=== PATIENT | female | born 1990 | race Caucasian/White ===

== ENCOUNTER 2017-06-28 18:08 | Emergency (ER) | payer SELFPAY ==
[~2017-06-28] VITALS: Ht 172.7 cm; Wt 71.3 kg
[~2017-06-28 18:08] MED LIST: BCPILLS PO
[2017-06-28 18:18] VITALS: BP 144/82; TEMP 37; Ht 172.7 cm; Wt 71.3 kg
[2017-06-28] MEDS ORDERED: ACETAMINOPHEN 500 MG TAB PO STA (18:37)
[2017-06-28] MEDS ORDERED: LIDOCAINE/EPINEPH/TETRACAINE 1 EA SYR EXT STA (18:37)
[2017-06-28] MEDS ORDERED: LIDOCAINE/EPINEPHRINE 1% 20 ML VIAL INFIL ONE (18:45)
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
--- NOTE | 2017-06-28 19:08 | DIAGNOSTIC IMAGING REPORT ---
HEAD WITHOUT CONTRAST (CT) CT DOSE: 537.48 mGy.cm HISTORY: Trauma. Nausea. head injury, nausea, ?loc TECHNIQUE: Multiaxial CT images of the head were performed without the use of intravenous contrast. A dose lowering technique was utilized adhering to the principles of ALARA. Comparison: None. Findings: The paranasal sinuses and mastoid air cells are clear. The calvarium and skull base are intact. The ventricles and sulci are within normal limits. There is no mass, hematoma, midline shift, or acute infarct. Impression: No acute intracranial abnormality. The above report was generated using voice recognition software. It may contain grammatical, syntax or spelling errors. Electronically signed by: Terry Lemus M.D. 06/28/2017 7:07 PM Dictated Date/Time: 06/28/2017 7:05 PM
[2017-06-28] MEDS ORDERED: DIPHTHERIA/TETANUS/PERTUSSIS 0.5 ML SYR/VIAL IM. ONE (20:00)
[2017-06-28 20:30] VITALS: PULSE 82; O2SAT 99
== END 2017-06-28 20:20 | disposition home or self-care (01) ==
LOC: C.EDB 18:09 → C.EDD 20:20
DX: S01.81XA Laceration without foreign body of other part of head, initial encounter (principal); W22.8XXA Striking against or struck by other objects, initial encounter; Y93.89 Activity, other specified; F17.210 Nicotine dependence, cigarettes, uncomplicated; Z79.3 Long term (current) use of hormonal contraceptives; Z23 Encounter for immunization

== ENCOUNTER 2024-03-19 00:06 | Inpatient (IN) ==
--- OUTSIDE RECORDS SUMMARY | 2024-03-19 00:14 | External Medical Summary | Summary of Care ---
Author Name Unknown Organization [facility] Address [address] [place] [address] Phone [phone] Care Team Providers Care Novelty Twister Operator Name Role Phone Debbie Garibay MD Primary Care Provider Unavailable Reason for Visit * Reason Comments Outpatient Testing Encounter Details Date Type Department Care Team (Late st Contact Info) Description 02/17/2024 7:50 AM EST Laboratory Laboratory, [facility] [address] [place] [id number] [facility] [address] [place] [id number] Encounter for supervision of normal first in third trimester Allergies No known active allergiesdocumented as of this encounter (statuses as of 02/17/2024) Medications Gummies 0.18-25 MG Oral Tablet Chewable Take by mouth. Active documented as of this encounter (statuses as of 02/17/2024) Active Problems Problem Noted Date Diagnosed Date Health counseling 02/17/2024 Assessment & Plan (02/17/2024 9:54 AM EST): Problem Action Taken Date entered Entered by Date resolved First Enrolled at 34 weeks. Unable to use NFP 02/17/2024 Liseth Willingham RN 02/17/2024 Late care Visits discussed 02/17/2024 Liseth Willingham RN 02/17/2024 Smoking/tobacco abuse Smoking Education- down to 3-4 per day. She was unsure how many she was smoking prior to 02/17/2024 Liseth Willingham RN 02/17/2024 Unplanned [facility]st Offer [facility] Unable to do due to 34 week enrollment Liseth Willingham RN 02/17/2024 nutrition Due date letter given for WIC 02/17/2024 Liseth Willingham RN 02/17/2024 Food insecurity 02/07/2024 Overview: Per [facility] Protocol Encounter for supervision of normal first in third trimester 02/03/2024 Late care affecting in third trimester 02/03/2024 Overview (02/03/2024): NOB at 32w5d Anatomy results pending at time of NOB Maternal tobacco use in third trimester 02/03/20 Estimated Date of Delivery Comme nts Yes 03/25/2024 Based on Ultraso und documented as of this encounter (statuses as of 02/17/2024) Resolved Problems Problem Noted Date Diagnosed Date Resolved Date AMA (advanced maternal age) multigravida 35+ 4 02/17/2024 documented as of this encounter (statuses as of 02/17/2024) Social History Tobacco Use Types Packs/Day Years Used Date Smoking Tobacco: Every Day Cigarettes Smokeless Tobacco: Never Alcohol Use Standard Drinks/Week Comments Not Currently 0 (1 standard drink = 0.6 oz pur e alcohol) Hunger Vital Sign Answer Date Recorded Within the past 12 months, y ou worried that your food would run out before you got the money to buy more. Sometimes true Within the past 12 months, t he food you bought just didn't last and you didn't have money to get more. Never true [place] Depression Scale Answer Date Recorded [place] Depression Scale Total 3 02/03/2024 The thought of harming myself has occurred to me . Never 02/03/2024 Childcare Answer Date Recorded Do you feel overwhelmed with taking care of a child, family member or friend? No 01/23/2024 Does your family need help f inding childcare? (Household - for ages 0-17 years) Not on file 01/23/2024 Clothing Answer Date Recorded Have you been unable to get clothing when it was really needed? No 01/23/2024 Is your family able to get c lothes or diapers when needed? (Household - for ages 0-17 years) Not on file 01/23/2024 Personal Safety Answer Date Recorded Do you feel unsafe or have concerns for your saf ety? No 01/23/2024 Do you have concerns for you r family's safety? (Household - for ages 0-17 years) Not on file 01/23/2024 Utilities Answer Date Recorded Do you have trouble paying y our heating, water, or electric bill? No 01/23/2024 Is your family able to pay t he heat, water, or electric bill? (Household - for ages 0-17 years) Not on file 01/23/2024 Does your family have access to good internet? (Household - for ages 0-17 years) Not on file 01/23/2024 Employment Status Answer Date Recorded Are you unemployed or without regular income? No 01/23/2024 Does the household have a [facility] source of income? (Household - for ages 0-17 years) Not on file 01/23/2024 Social Connections Answer Date Recorded How often do you feel lonely or isolated from th ose around you? Rarely 01/23/2024 Financial Resource Strain Answer Date R ecorded Do you have any trouble payi ng for your medications, or do you think you might in the future? Yes 01/23/2024 Does your family have troubl e paying for medicine? (Household - for ages 0-17 years) Not on file 01/23/2024 Transportation Needs Answer Date Record ed Do you have trouble getting a ride to medical visits or work? (Adult - for ages 18 years and over) Not on file 01/23/2024 Does your family have a hard time getting a ride to doctors visits? (Household - for ages 0-17 years) Not on file 01/23/2024 Has lack of transportation k ept you from medical appointments, meetings, work, or from getting things needed for daily living? Check all that apply. No 01/23/2024 Do you (or your family) have trouble finding or paying for a ride (transportation)? (Household - for ages 0-17 years) Not on file 01/23/2024 Housing Stability Answer Date Recorded Do you currently live in a s helter or have no steady place to sleep at night? No 01/23/2024 Do you think you are at risk of becoming homeless? (Adult - for ages 18 years and over) Not on file 01/23/2024 Does your family worry about paying for your home or becoming homeless? (Household - for ages 0-17 years) Not on file 1 03/24/2023 Are you homeless or worried that you might be in the future? No 01/23/2024 Are you (or your family) karthik eless or worried that you might be in the future? (Household - for ages 0-17 years) Not on file Food Insecurity Answer Date Recorded Do you need food for this week? No 01/23/2024 Are you able to get enough f ood for your family? (Household - for ages 0-17 years) Not on file 01/23/2024 Does your family need food t his week? (Household - for ages 0-17 years) Not on file 01/23/2024 Do you always have enough fo od for your family? (Household - for ages 0-17 years) Not on file 01/23/2024 Estimated Date of Delivery Comme nts Yes 03/25/2024 Based on Ultraso und Sex and Gender Information Value Date Recorded Sex Assigned at Female 01/23/2024 9:47 AM EST Legal Sex Female 7:20 AM EST Gender Identity Female 01/23/2024 9:47 AM EST Sexual Orientation Straight 01/23/2024 9: 47 AM EST documented as of this encounter Plan of Treatment Upcoming Encounters Date Type Department Care Team (Late st Contact Info) Description 03/08/2024 11:15 AM EST Office Visit Gynecology/Obstetrics Beatriz Jesus [address] [place] [id number] Juliane Varela CRNP [address] [place] [address] [facility] [address] [place] [phone] Pending Results Name Type Priority Associated Diagnoses Date /Time 50-G GESTATIONAL GLUCOSE, 1 HOUR Lab Routine Encounter for supervision of normal first in third trimester 02/17/2024 9:00 AM EST Health Maintenance Due Date Last Done Comments Pneumococcal Vaccine: Pediat rics (0 to 5 Years) and At-Risk Patients (6 to 64 Years) (1 of 2 - PCV) 1995 Depression Screening 2001 Hepatitis B Vaccine (1 of 3 - 19+ 3-dose series) 2008 COVID-19 Vaccine ( - 2023-2 5 season) 2023 Influenza Vaccine (FLU shot) (#1) 2023 Pap Smear 02/02/2027 02/03/2024 DTap/Tdap Vaccines (2 - Td o r Tdap) 06/29/2027 06/28/2017 Cervical Cancer Screening 02/02/2029 HPV/Co-Test 02/02/2029 02/03/2024 HPV (Gardasil) Vaccine Aged Out No lo nger eligible based on patient's age to complete this topic MENINGOCOCCAL (MENACTRA/MENVEO) Aged Out No longer eligible based on patient's age to complete this topic documented as of this encounter Goals Goal Patient Goal Type Associated Problems Recent Progress Patient-Stated? Author Reminders Care Plan OB Reminders No Aimee, Provider documented as of this encounter Medical Devices Not on filedocumented as of this encounter Visit Diagnoses Diagnosis Encounter for supervision of normal first in third trimester- Primary Supervision of normal first Late care affecting in third trimester Maternal tobacco use in third trimester Encounter for supervision of normal first in third trimester Supervision of normal first documented in this encounter Additional Health Concerns Active Problems Noted Date Diagnosed Date OB Reminders 02/17/2024 documented as of this encounter Care Teams Novelty Twister Operator Relationship Specialty Start Date End Date Debbie Garibay MD PCP - General 01/21/1998 documented as of this encounter
--- OUTSIDE RECORDS SUMMARY | 2024-03-19 00:14 | External Medical Summary ---
Author Name Unknown Address Unknown Organization [facility] [address] [place] [address] Laboratory Report Ordering Provider Test Date Status EDDA FABIAN 02/11/2024 10:38:18 Final Observation Date Value Abnormality Reference (Units ) Status Hep C Ab 02/11/2024 10:38:18 Negative Negative Final Further HCV quantitative oxana ting not performed per protocol. Performing Location [facility] [address] [place] [address]
--- OUTSIDE RECORDS SUMMARY | 2024-03-19 00:14 | External Medical Summary | Summary of Care ---
Author Name Unknown Organization [facility] Address [address] [place] [facility] [place] [address] Phone [phone] Care Team Providers Care Solutions Executive Security Name Role Phone Debbie Garibay MD Primary Care Provider Unavailable Reason for Visit * Reason Comments Return Visit Encounter Details Date Type Department Care Team (Late st Contact Info) Description 03/08/2024 11:15 AM EST Office Visit Gynecology/Obstetri kena Jesus [address] [facility] [place] [address] Juliane Varela CRNP [address] [place] [address] Nurse [facility] [address] [place] [address] Normal in third trimester*; Late care affecting in third trimester; Maternal tobacco use in third trimester; Health counseling Allergies No known active allergiesdocumented as of this encounter (statuses as of 03/08/2024) Medications Gummies 0.18-25 MG Oral Tablet Chewable Take by mouth. Active documented as of this encounter (statuses as of 03/08/2024) Active Problems Problem Noted Date Diagnosed Date [...] 02/07/2024 Overview: Per [facility] Protocol Normal 02/03/2024 Late care affecting in third trimester 02/03/2024 Overview (02/03/2024): NOB at 32w5d Anatomy results pending at time of NOB Maternal tobacco use in third trimester 02/03/20 Estimated Date of Delivery Comme nts Yes 03/25/2024 Based on Ultraso und documented as of this encounter (statuses as of 03/08/2024) Resolved Problems Problem Noted Date Diagnosed Date Resolved Date AMA (advanced maternal age) multigravida 35+ 4 02/17/2024 documented as of this encounter (statuses as of 03/08/2024) Social History Tobacco Use Types Packs/Day Years [...] have money to get more. Never true [place] Depression Scale Answer Date Recorded [place] Depression Scale Total 3 02/03/2024 The thought [...] No 01/23/2024 Does the household have a [facility] source [facility] income? (Household - for ages [...] AM EST documented as of this encounter Last Filed Vital Signs Vital Sign Reading Time Taken Comments Blood Pressure 124/80 03/08/2024 11:27 AM EST Pulse - - Temperature - - Respiratory Rate - - Oxygen Saturation - - Inhaled Oxygen Concentration - - Weight 70.3 kg (155 lb) 03/08/2024 11:27 AM EST Height 172.7 cm (5' 8") 03/08/2024 11:27 AM EST Body Mass Index 23.57 03/08/2024 11:27 AM EST documented in this encounter Progress Notes * Corinna Thomas LPN - 03/08/2024 11:28 AM EST 37w4d Denies vaginal bleeding/rom + movement No new concerns * Juliane Varela CRNP - 03/08/2024 11:24 AM EST 37w4d Baby is active. No leaking, bleeding, ctx. GBS collected today. Reviewed [facility] and labor signs. Return in 1 week. Air Value Tester Documentation Provider requested major assembler. Name of major assembler: HILARIO Varghese documented in this encounter Plan of Treatment Upcoming Encounters Date Type Department Care Team (Late st Contact Info) Description 03/21/2024 8:45 AM EST Office Visit Gynecology/Obstetrics [facility] [address] [place] [id number] Juliane Varela CRNP [address] [place] [address] Pending Results Name Type Priority Associated Diagnoses Date /Time GROUP B STREP CULTURE/PCR Lab Routine Normal in third trimester 03/08/2024 11:39 AM EST Health Maintenance Due Date Last Done Comments Depression Screening 2001 Hepatitis B Vaccine (1 of 3 - 19+ 3-dose series) 2008 Pneumococcal Vaccine: Pediat rics (0 to 5 Years) and At-Risk Patients (6 to 18 Years and 19+ Years) (1 of 2 - PCV) 2008 COVID-19 Vaccine ( - 2023-2 5 [...] Author Reminders Care Plan OB Reminders No Aimee Provider documented as of this encounter Medical Devices Not on filedocumented as of this encounter Visit Diagnoses Diagnosis Encounter for supervision of normal first in third trimester- Primary Supervision of normal first Late care affecting in third trimester Maternal tobacco use in third trimester Normal in third trimester- Primary Late care affecting in third trimester Maternal tobacco use in third trimester Health counseling Other specified counseling documented in this encounter Additional Health Concerns Active Problems Noted Date Diagnosed Date OB Reminders 02/17/2024 documented as of this encounter Care Teams Solutions Executive Security Relationship Specialty Start Date End Date Debbie Garibay MD PCP - General 01/21/1998 documented as of this encounter
--- OUTSIDE RECORDS SUMMARY | 2024-03-19 00:14 | External Medical Summary | Summary of Care ---
Author Name Unknown Organization [facility] Address [address] [place] [address] Phone [phone] Care Team Providers Care Insulating Machine Operator Name Role Phone Debbie Garibay MD Primary Care Provider Unavailable Reason for Visit * Reason Comments Outpatient Testing Encounter Details Date Type Department Care Team (Late st Contact Info) Description 02/17/2024 8:00 AM EST Laboratory Laboratory, [facility] [address] [place] [id number] [facility] [address] [place] [address] Arrived Allergies No known active allergiesdocumented as of this encounter (statuses as of 02/17/2024) Medications Gummies 0.18-25 MG Oral Tablet Chewable Take by mouth. Active documented as of this encounter (statuses as of 02/17/2024) Active Problems Problem Noted Date Diagnosed Date Food insecurity 02/07/2024 Overview: Per [facility] Protocol Encounter for supervision of normal first in third trimester 02/03/2024 Late care affecting in third trimester 02/03/2024 Overview (02/03/2024): NOB at 32w5d Anatomy results pending at time of NOB Maternal tobacco use in third trimester 02/03/20 24 Estimated Date of Delivery Comme nts Yes [...] have money to get more. Never true [place] Depression Scale Answer Date Recorded [place] Depression Scale Total 3 02/03/2024 The thought [...] No 01/23/2024 Does the household have a re gular source of income? (Household - for ages [...] as of this encounter Plan of Treatment Health Maintenance Due Date Last Done Comments Pneumococcal Vaccine: Pediat rics (0 to 5 Years) and At-Risk Patients (6 to 64 Years) (1 of 2 - PCV) 1995 Depression Screening 2001 Hepatitis B Vaccine (1 of 3 - 19+ 3-dose series) 2008 COVID-19 Vaccine (2023-2 5 season) 2023 Influenza Vaccine (FLU shot) [...] Author Reminders Care Plan OB Reminders No Mychart, Provider documented as of this encounter Medical Devices Not on filedocumented as of this encounter Additional Health Concerns Active Problems Noted Date Diagnosed Date OB Reminders 02/17/2024 documented as of this encounter Care Teams Insulating Machine Operator Relationship Specialty Start Date End Date Debbie Garibay MD PCP - General 01/21/1998 documented as of this encounter
--- OUTSIDE RECORDS SUMMARY | 2024-03-19 00:14 | External Medical Summary ---
Author Name Unknown Address Unknown Organization [id number]:LABORATORY [facility] [place] - [facility] [address] [place] [address] Laboratory Report Ordering Provider Test Date Status PRECIOUS THOMPSON 03/08/2024 11:39:12 Final Observation Date Value Abnormality Reference (Units ) Status Streptococcus agalactiae DNA [Presence] in Specimen by JESSENIA with probe detection 03/08/2024 11:39:12 Negative Negative Final No Group B Streptococcus det ected by culture-enhanced PCR (amplified probe). GBS GBSCT - [facility] 03/08/2024 11:39:12 0.0 Final GBS SPCCT - [facility] 03/08/2024 11:39:12 32.0 Final Performing Location LAB[facility]ORY [facility] [place] - [address] [place] [address]
--- OUTSIDE RECORDS SUMMARY | 2024-03-19 00:14 | External Medical Summary | Summary of Care ---
Author Name Unknown Organization [facility] Address [address] [place] [place] [address] Phone [phone] Care Team Providers Care Hospitality Host Name Role Phone Debbie Garibay MD Primary Care Provider Unavailable Reason for Visit * Reason Comments Outpatient Testing Encounter Details Date Type Department Care Team (Late st Contact Info) Description 02/11/2024 10:30 AM EST Laboratory Laboratory [address] [place] [id number] [place] [address] Encounter for supervision of normal first in third trimester Allergies No known active allergiesdocumented as of this encounter (statuses as of 02/11/2024) Medications Gummies 0.18-25 MG Oral Tablet Chewable Take by mouth. Active Cephalexin 500 MG Oral Capsule (Keflex) Take 1 Capsule by mouth in the morning and 1 Capsule before bedtime. Do all this for 7 days. Until gone.. 14 Capsule 02/07/2024 4 Active documented as of this encounter (statuses as of 02/11/2024) Active Problems Problem Noted Date Diagnosed Date Encounter for supervision of normal first in third trimester 02/03/2024 Late care affecting in third trimester 02/03/2024 Overview (02/03/2024): NOB at 32w5d Anatomy results pending at time of NOB Maternal tobacco use in third trimester 02/03/20 Estimated Date of Delivery Comme nts Yes 03/25/2024 Based on Ultraso und documented as of this encounter (statuses as of 02/11/2024) Social History Tobacco Use Types Packs/Day Years [...] have money to get more. Never true [place] Depression Scale Answer Date Recorded [place] Depression Scale Total 3 02/03/2024 The thought [...] Team (Late st Contact Info) Description 02/17/2024 7:30 AM EST Office Visit Gynecology/Obstetrics [facility] [address] [place] [address] Juliane Varela CRNP [address] [place] [address] Pending Results Name Type Priority Associated Diagnoses Date /Time TYPE AND SCREEN Lab Routine Encounter for supervision of normal first in third trimester 02/11/2024 10:38 AM EST RUBELLA IGG ANTIBODY Lab Routine Encounter for supervision of normal first in third trimester 02/11/2024 10:38 AM EST HEPATITIS B SURFACE ANTIGEN Lab Routine Encounter for supervision of normal first in third trimester 02/11/2024 10:38 AM EST HIV ANTIGEN & ANTIBODY SCREEN W/ CONFIRMATION Lab Routine Encounter for supervision of normal first in third trimester 02/11/2024 10:38 AM EST CBC WITH WBC DIFFERENTIAL AND ANEMIA REFLEX WORKUP Lab Routine Encounter for supervision of normal first in third trimester 02/11/2024 10:38 AM EST HEPATITIS C ANTIBODY SCREEN WITH PROGRESSION TO HEPATITIS C RNA QUANTITATIVE Lab Routine Encounter for supervision of normal first in third trimester 02/11/2024 10:38 AM EST SYPHILIS ANTIBODY SCREEN WITH REFLEX TO RPR Lab Routine Encounter for supervision of normal first in third trimester 02/11/2024 10:38 AM EST ANEMIA CBC Lab Routine Encounter for supervision of normal first in third trimester 02/11/2024 10:38 AM EST DIFFERENTIAL, AUTOMATED Lab Routine Encounter for supervision of normal first in third trimester 02/11/2024 10:38 AM EST ANEMIA REFLEX CHEMISTRY HOLD Lab Routine Encounter for supervision of normal first in third trimester 02/11/2024 10:38 AM EST HEPATITIS C ANTIBODY Lab Routine Encounter for supervision of normal first in third trimester 02/11/2024 10:38 AM EST HEPATITIS C RNA ADD ON Lab Routine Encounter for supervision of normal first in third trimester 02/11/2024 10:38 AM EST SYPHILIS ANTIBODY SCREEN Lab Routine Encounter for supervision of normal first in third trimester 02/11/2024 10:38 AM EST ABO/RH Lab Routine Encounter for supervision of normal first in third trimester 02/11/2024 10:47 AM EST Health Maintenance Due Date Last Done Comments Pneumococcal Vaccine: Pediat rics (0 to 5 Years) and At-Risk Patients (6 to 64 Years) (1 of 2 - PCV) 1995 Depression Screening 2001 HIV Screening 2004 Hepatitis C Screening 2007 Hepatitis B Vaccine (1 of 3 - [...] this topic documented as of this encounter Medical Devices Not on filedocumented as of this encounter Visit Diagnoses Diagnosis Encounter for supervision of normal first in third trimester Supervision of normal first documented in this encounter Care Teams Hospitality Host Relationship Specialty Start Date End Date Debbie Garibay MD PCP - General 01/21/1998 documented as of this encounter
--- OUTSIDE RECORDS SUMMARY | 2024-03-19 00:14 | External Medical Summary ---
Author Name Unknown Address Unknown Organization [id number]:LABORATORY [facility] [place] [address] [place] [address] Laboratory Report Ordering Provider Test Date Status EDDA FABIAN 02/17/2024 09:00:26 Final Observation Date Value Abnormality Reference (Units ) Status Glucose [Moles/volume] in Serum or Plasma --1 hour post 50 g glucose PO 02/17/2024 09:00:26 76 70-129 (mg/dL) Final Performing Location LABORATORY [facility] [place] [facility] - [address] [place] [address]
--- OUTSIDE RECORDS SUMMARY | 2024-03-19 00:14 | External Medical Summary | Summary of Care ---
Author Name Unknown Organization [facility] Address [address] [place] [facility] [place] [address] Phone [phone] Care Team Providers Care Brilliandeer Looper Name Role Phone Debbie Garibay MD Primary Care Provider Unavailable Reason for Visit * Reason Comments Return Visit Encounter Details Date Type Department Care Team (Late st Contact Info) Description 02/17/2024 7:30 AM EST Office Visit Gynecology/Obstetric s [facility] [address] [place] [address] Juliane Varela CRNP [address] [place] [address] Encounter for supervision of normal first in third trimester*; Late care affecting in third trimester; Maternal tobacco use in third trimester Allergies No known active allergiesdocumented as of this encounter (statuses as of 02/17/2024) Medications Gummies 0.18-25 MG Oral Tablet Chewable Take by mouth. Active Cephalexin 500 MG Oral Capsule (Keflex) Take 1 Capsule by mouth in the morning and 1 Capsule before bedtime. Do all this for 7 days. Until gone.. 14 Capsule 02/17/20 24 Discontinu ed(Medicat ion List Clean Up) documented as of this encounter (statuses as [...] have money to get more. Never true [place] Depression Scale Answer Date Recorded [place] Depression Scale Total 3 02/03/2024 The [...] Sign Reading Time Taken Comments Blood Pressure 128/82 02/17/2024 7:22 AM EST Pulse - - Temperature - - Respiratory Rate - - Oxygen Saturation - - Inhaled Oxygen Concentration - - Weight 71.2 kg (157 lb) 02/17/2024 7:22 AM EST Height - - Body Mass Index 23.87 02/03/2024 12:41 PM EST documented in this encounter Progress Notes * Juliane Varela CRNP - 02/17/2024 7:39 AM EST 34w5d Baby moving well. No ctx, leaking, bleeding. Has not completed glucose testing - discussed concerns with unknown blood sugars if GDM. She is agreeable to completing this today. Advised to look into pediatricians. Discussed GBS testing at next visit. Wants a tubal, consent signed today. 2 week return HILARIO Monae documented in this encounter Nursing Notes * Liseth Willingham RN - 02/17/2024 10:05 AM EST have you cut down with your smoking yes have you quit no have you seen a bundle collector no have you seen a adoption social worker no are you receiving counseling no have you received dental care during your no are you enrolled in [facility] yes do you receive food stamps or grimes assistance yes are you having problems with depression, receiving counseling or taking prescribed medications denies have you had little interest in doing things, or have you been bothered by feeling down, depressed,or hopeless denies 47. Client's Concerns About Delivery or The Process: denies 48. Problems Feeding Previous Babies: N/A 49. Concerns About Feeding This Baby: plans to bottle feed 50. Plans For Baby's Space: has crib. Getting car seat 51. Client's Plans After : Will Stay at Home to Care for Baby Comments (Including Typewriter Operator Automatic Plans If Returning to Work/School): SUMMARY/INFORMATION 52. Need For Additional Information / Help: documented in this encounter Miscellaneous Notes * Assessment & Plan Note - Liseth Willingham RN - 02/17/2024 9:54 AM EST Associated Problem(s): Health counseling Problem Action Taken Date entered Entered by [...] for WIC 02/17/2024 Liseth Willingham RN 02/17/2024 documented in this encounter Plan of Treatment Upcoming Encounters Date Type Department Care Team (Late st Contact Info) Description 03/08/2024 11:15 AM EST Office Visit Gynecology/Obstetrics [facility] [address] [place] [address] Juliane Varela CRNP [address] [place] [address] Nurse [facility] [address] [place] [address] Health Maintenance Due Date Last Done Comments [...] trimester Maternal tobacco use in third trimester documented in this encounter Additional Health Concerns Active Problems Noted Date Diagnosed Date OB Reminders 02/17/2024 documented as of this encounter Care Teams Brilliandeer Looper Relationship Specialty Start Date End Date Debbie Garibay MD PCP - General 01/21/1998 documented as of this encounter
--- OUTSIDE RECORDS SUMMARY | 2024-03-19 00:15 | External Medical Summary ---
Author Name Unknown Address Unknown Organization [id number]:[place] [facility] [place] [facility] [place] [address] [facility] [address] Laboratory Report Ordering Provider Test Date Status EDDA FABIAN 02/11/2024 10:38:18 Final Observation Date Value Abnormality Reference (Units ) Status HIV 1+2 Ab+HIV1 p24 Ag [Presence] in Serum or Plasma by Immunoassay 02/11/2024 10:38:18 Negative Negative Final Negative HIV-1/2 antigen and antibody screening tset results usually indicate the absence of HIV-1 and HIV-2 infection. However, such negative results do not rule-out acute HIV infection. If acute HIV-1 infection is highly suspected, it is recommended that a specimen be submitted for detection of HIV-1 RNA. Performing Location [facility] [facility] [place] [address] [place] [address]
--- OUTSIDE RECORDS SUMMARY | 2024-03-19 00:15 | External Medical Summary | Summary of Care ---
Author Name Unknown Organization [facility] Address [address] [facility] [address] Phone [phone] Care Team Providers Care Speech Teacher Name Role Phone Debbie Garibay MD Primary Care Provider Unavailable Reason for Visit * Reason Onset Date Comments Appointment 02/03/2024 Encounter Details Date Type Department Care Team (Late st Contact Info) Description 02/03/2024 Telephone Gynecology/Obstetrics [facility] [address] [place] [address] Samantha Richards PA-C [address] [place] [address] Appointment Social History Tobacco Use Types Packs/Day Years Used Date Smoking Tobacco: Never Assessed Hunger Vital Sign Answer Date Recorded Within the past 12 months, y ou worried that your food would run out before you got the money to buy more. Sometimes true Within the past 12 months, t he food you bought just didn't last and you didn't have money to get more. Never true Childcare Answer Date Recorded Do you feel [...] No 01/23/2024 Does the household have a [facility] source [facility] income? (Household - for [...] ages 0-17 years) Not on file 01/23/2024 Comments Unknown Sex and Gender Information Value Date Recorded Sex Assigned at Female 01/23/2024 9:47 AM EST Legal Sex Female 7:20 AM EST Gender Identity Female 01/23/2024 9:47 AM EST Sexual Orientation Straight 01/23/2024 9: 47 AM EST documented as of this encounter Miscellaneous Notes * Telephone Encounter - Cathryn Ruiz LPN - 02/03/2024 9:07 AM EST TC to patient regarding todays appt. Previously unable to reach patient to complete intake or to schedule for anatomy US. Patient was planning on coming for todays appt with Samantha Richards. She is agreeable to coming at 11am for ultrasound, intake at noon, and then appt with Samantha at 130pm. documented in this encounter Plan of Treatment Upcoming Encounters Date Type Department Care Team (Late st Contact Info) Description 02/03/2024 11:15 AM EST Imaging Radiology [facility] [address] [place] [address] 02/03/2024 12:45 PM EST Nurse Only Gynecology/Obstetrics [facility] [address] [facility] [place] [address] Gw, Nurse Supervisor [employer] [facility] [address] [place] [address] 02/03/2024 1:30 PM EST Office Visit Gynecology/Obstetrics [facility] [address] [place] [address] Samantha Richards PA-C [address] [place] [address] Health Maintenance Due Date Last Done Comments Depression Screening 2001 HIV Screening 2004 Hepatitis C Screening 2007 DTap/Tdap Vaccines (1 - Tdap) 2008 Hepatitis B Vaccine (1 of 3 - 19+ 3-dose series) 2008 Pap Smear 2010 Cervical Cancer Screening 2019 HPV/Co-Test 2019 COVID-19 Vaccine ( - 2023-2 5 season) 2023 Influenza Vaccine (FLU shot) (#1) 2023 HPV (Gardasil) Vaccine Aged Out No lo nger eligible based on patient's age to complete this topic MENINGOCOCCAL (MENACTRA/MENVEO) Aged Out No longer eligible based on patient's age to complete this topic Pneumococcal Vaccine: Pediat rics (0 to 5 Years) and At-Risk Patients (6 to 64 Years) Aged Out No longer eligible b ased on patient's age to complete this topic documented as of this encounter Medical Devices Not on filedocumented as of this encounter Care Teams Speech Teacher Relationship Specialty Start Date End Date Debbie Garibay MD PCP - General 01/21/1998 documented as of this encounter
--- OUTSIDE RECORDS SUMMARY | 2024-03-19 00:15 | External Medical Summary | Summary of Care ---
Author Name Unknown Organization [facility] Address [address] [facility] [place] [address] Phone [phone] Care Team Providers Care Inspector Crystal Name Role Phone Debbie Garibay MD Primary Care Provider Unavailable Reason for Visit * Reason Comments Initial Visit Encounter Details Date Type Department Care Team (Late st Contact Info) Description 02/03/2024 1:30 PM EST Office Visit Gynecology/Obstetric s [facility] Jesus [address] [place] [address] Samantha Richards PA-C [address] [place] [address] Encounter for supervision of normal first in third trimester*; Pap smear for cervical cancer screening; Late care affecting in third trimester; Maternal tobacco use in third trimester Allergies No known active allergiesdocumented as of this encounter (statuses as of 02/03/2024) Medications No known medicationsdocumented as of this encounter (statuses as of 02/03/2024) Active Problems Problem Noted Date Diagnosed Date [...] as of this encounter (statuses as of 02/03/2024) Social History Tobacco Use Types Packs/Day Years [...] have money to get more. Never true [place] Depression Scale Answer Date Recorded [place] Depression Scale Total 3 02/03/2024 The thought [...] Reading Time Taken Comments Blood Pressure 128/82 02/03/2024 12:41 PM EST Pulse - - Temperature - - Respiratory Rate - - Oxygen Saturation - - Inhaled Oxygen Concentration - - Weight 68.9 kg (152 lb) 02/03/2024 12:41 PM EST Height 172.7 cm (5' 8") 02/03/2024 12:41 PM EST Body Mass Index 23.11 02/03/2024 12:41 PM EST documented in this encounter Progress Notes * Samantha Richards PA-C - 02/03/2024 12:52 PM EST CC: NOB HPI: Amairani Sanchez is a 33 year old female here for initial OB exam. CRISTINO 03/25/2024 by third trimester ultrasound completed today.. LMP: unknown. On contraceptive pills. Did not get period. Only found out she was end of November as she was gaining weight and didn't know why. Late care patient states due in part to no insurance and only finding out about amonth ago. She is taking vitamins. She does NOT plan to breastfeed . Reviewed PMH, social hx, family hx, surgical hx, ob hx with patient. Pertinent positives: - She is smoker. Current symptoms: none Discussed Qnatal and Quad screen. Reviewed current medications with patient. Last pap smear unsure. Within last 5 years. All normals in past. Pt states unsure paternity. Had 2 partners at time conception likely took place. [place] Depression Scale: [place] Depression Scale Total: (Patient-Rptd) 3 [place] suicide question and score: Score of 3 = Yes, quite often. Score of 2 = Sometimes. Score of 1 = Hardly ever The thought of harming myself has occurred to me.: (Patient-Rptd) 0 OB History Para Term AB Living 2 1 SAB IAB Ectopic Multiple Live Births 1 # Outcome Date GA Lbr Tien/2nd Weight Sex Type Anes PTL Lv 2 Current 1 SAB 8w0d No past medical history on file. Social History Socioeconomic History Marital status: Single Tobacco Use Smoking status: Every Day Current packs/day: 0.50 Types: Cigarettes Smokeless tobacco: Never Substance and Sexual Activity Alcohol use: Not Currently Drug use: Never Sexual activity: Not Currently Social Needs Financial Resource Strain: High Risk (01/23/2024) Financial Resource Strain Do you have any trouble paying for your medications, or do you think you might in the future? (Adult - for ages 18 years and over): Yes Food Insecurity: No Food Insecurity (01/23/2024) Food Insecurity Do you need food for this week? (Adult - for ages 18 years and over): No Recent Concern: Food Insecurity - Food Insecurity Present (01/23/2024) Hunger Vital Sign Worried About Running Out of Food in the Last Year: Sometimes true Ran Out of Food in the Last Year: Never true Transportation Needs: No Transportation Needs (01/23/2024) Transportation Needs Has lack of transportation kept you from medical appointments, meetings, work, or from getting things needed for daily living? Check all that apply. (Adult - for ages 18 years and over): No Social Connections: Socially Integrated (01/23/2024) Social Connections How often do you feel lonely or isolated from those around you? (Adult - for ages 18 years and over): Rarely Housing Stability: Low Risk (01/23/2024) Housing Stability Do you currently live in a penitentiary or have no steady place to sleep at night? (Adult - for ages 18 years and over): No Are you homeless or worried that you might be in the future? (Adult - for ages 18 years and over): No No past surgical history on file. Current Outpatient Medications Medication Sig Dispense Refill Gummies 0.18-25 MG Oral Tablet Chewable Take by mouth. No current facility-administered medications for this visit. Review of patient's allergies indicates: No Known Allergies No family history on file. Denies family history of genetic conditions in patient's families. ROS: General: no fevers, chills CV: no chest pain, SOB GI: no constipation, diarrhea, nausea Breast: no masses, nipple discharge, tenderness : no vaginal bleeding, unusual vaginal discharge, dysuria Psychological: no anxiety, depression, SI/HI PHYSICAL EXAM: please see physical [employer] Documentation Provider requested emblem cutter. Name of emblem cutter: Cathryn Woodson LPN ASSESSMENT/PLAN: Encounter for supervision of normal first in third trimester (Primary) Anatomy complete today -- results still in process. Discussed may need follow up anatomy; however, may be limited study due to late GA. Declines Tdap and Flu vaccine upon counseling. Discussed need and importance of blood work. Recommend she complete today. Pt states will need to return for glucola at later date. Discussed returning prior to next visit as need to screen for GDM. - CULTURE, URINE, QUANTITATIVE - TYPE AND SCREEN; Future; Expected date: 02/03/2024 - RUBELLA IGG ANTIBODY; Future; Expected date: 02/03/2024 - HEPATITIS B SURFACE ANTIGEN; Future; Expected date: 02/03/2024 - HIV ANTIGEN & ANTIBODY SCREEN W/ CONFIRMATION; Future; Expected date: 02/03/2024 - CHLAMYDIA TRACHOMATIS AND NEISSERIA GONORRHOEAE, AMPLIFIED PROBE - ABO/RH; Future; Expected date: 02/03/2024 - CBC WITH WBC DIFFERENTIAL AND ANEMIA REFLEX WORKUP; Future; Expected date: 02/03/2024 - HEPATITIS C ANTIBODY SCREEN WITH PROGRESSION TO HEPATITIS C RNA QUANTITATIVE; Future; Expected date: 02/03/2024 - SYPHILIS ANTIBODY SCREEN WITH REFLEX TO RPR; Future; Expected date: 02/03/2024 - 50-G GESTATIONAL GLUCOSE, 1 HOUR; Future; Expected date: 02/03/2024 - HYDRAULIC JACK OPERATOR PAP SCREEN; Future; Expected date: 02/03/2024 - URINALYSIS OBSTETRICS, POINT OF CARE - HYDRAULIC JACK OPERATOR PAP SCREEN Pap smear for cervical cancer screening - HYDRAULIC JACK OPERATOR PAP SCREEN; Future; Expected date: 02/03/2024 - HYDRAULIC JACK OPERATOR PAP SCREEN Late care affecting in third trimester NOB at 32w5d. Maternal tobacco use in third trimester Recommend cessation in . - Discussed timing of routine OB care - Recommended Covid and RSV vaccine due to increased risk of severe disease in . - Offered genetic screening and explained that screening does not provide a definitive diagnosis. Patient will notify clinic of decision. - Recommended clean healthy diet and discussed foods/drinks to avoid in . Discussed recommend weight gain in . - Counseled on OTC measures to help alleviate nausea and advised to call if these are ineffective - Recommended daily vitamin. - Discussed labs as ordered and instructed patient to present to lab following appointment. Follow Up: Return in about 2 weeks (around 02/17/2024), or if symptoms worsen or fail to improve, for Return visit. | For: Return visit | Check-out note: Please arrive at lab Glucola ahead of next visit Samantha Richards PA-C documented in this encounter Nursing Notes * Cathryn Ruiz LPN - 02/03/2024 12:47 PM EST 32w5d NOB Declines flu and tdap. Reviewed glucola, labor instructions, NOB booklet. documented in this encounter Plan of Treatment Pending Results Name Type Priority Associated Diagnoses Date /Time CULTURE, URINE, QUANTITATIVE Lab Routine Encounter for supervision of normal first in third trimester 02/03/2024 1:08 PM EST CHLAMYDIA TRACHOMATIS AND NEISSERIA GONORRHOEAE, AMPLIFIED PROBE Lab Routine Encounter for supervision of normal first in third trimester 02/03/2024 1:08 PM EST HYDRAULIC JACK OPERATOR PAP SCREEN Pathology Routine Encounter for supervision of normal first in third trimester Pap smear for cervical cancer screening 02/03/2024 1:08 PM EST Scheduled Orders Name Type Priority Associated Diagnoses Order Schedule TYPE AND SCREEN Lab Routine Encounter for supervision of normal first in third trimester Expected: 02/03/2024, Expires: 03/05/2025 RUBELLA IGG ANTIBODY Lab Routine Encounter for supervision of normal first in third trimester Expected: 02/03/2024 (Approximate), Expires: 02/02/2025 HEPATITIS B SURFACE ANTIGEN Lab Routine Encounter for supervision of normal first in third trimester Expected: 02/03/2024 (Approximate), Expires: 02/02/2025 HIV ANTIGEN & ANTIBODY SCREEN W/ CONFIRMATION Lab Routine Encounter for supervision of normal first in third trimester Expected: 02/03/2024, Expires: 02/02/2025 ABO/RH Lab Routine Encounter for supervision of normal first in third trimester Expected: 02/03/2024, Expires: 03/05/2025 CBC WITH WBC DIFFERENTIAL AND ANEMIA REFLEX WORKUP Lab Routine Encounter for supervision of normal first in third trimester Expected: 02/03/2024, Expires: 02/02/2025 HEPATITIS C ANTIBODY SCREEN WITH PROGRESSION TO HEPATITIS C RNA QUANTITATIVE Lab Routine Encounter for supervision of normal first in third trimester Expected: 02/03/2024, Expires: 02/02/2025 SYPHILIS ANTIBODY SCREEN WITH REFLEX TO RPR Lab Routine Encounter for supervision of normal first in third trimester Expected: 02/03/2024, Expires: 02/02/2025 50-G GESTATIONAL GLUCOSE, 1 HOUR Lab Routine Encounter for supervision of normal first in third trimester Expected: 02/03/2024, Expires: 02/02/2025 HYDRAULIC JACK OPERATOR PAP SCREEN Pathology Routine Encounter for supervision of normal first in third trimester Pap smear for cervical cancer screening Expected: 02/03/2024, Expires: 03/05/2025 URINALYSIS OBSTETRICS, POINT OF CARE Point of Care Testing - Unsolicited Results Routine Encounter for supervision of normal first in third trimester Ordered: 02/03/2024 Health Maintenance Due Date Last Done Comments [...] 2023 Influenza Vaccine (FLU shot) (#1) 2023 DTap/Tdap Vaccines (2 - Td o r Tdap) 06/29/2027 06/28/2017 HPV (Gardasil) Vaccine Aged Out No lo nger eligible based on patient's age to complete this topic MENINGOCOCCAL (MENACTRA/MENVEO) Aged Out No longer eligible based on patient's age to complete this topic documented as of this encounter Medical Devices Not on filedocumented as of this encounter Visit Diagnoses Diagnosis Encounter for supervision of normal first in third trimester- Primary Supervision of normal first Pap smear for cervical cancer screening Screening for malignant neoplasm of the cervix Late care affecting in third trimester Maternal tobacco use in third trimester documented in this encounter Care Teams Inspector Crystal Relationship Specialty Start Date End Date Debbie Garibay MD PCP - General 01/21/1998 documented as of this encounter
--- OUTSIDE RECORDS SUMMARY | 2024-03-19 00:15 | External Medical Summary | Summary of Care ---
Author Name Unknown Organization [facility] [address] [facility] [facility] [place] [address] Phone [phone] Care Team Providers Care Iron Launder Operator Name Role Phone Debbie Garibay MD Primary Care Provider Unavailable Encounter Details Date Type Department Care Team (Late st Contact Info) Description 01/21/2024 Telephone Gynecology/Obstetrics [facility] [address] [place] [address] Samantha Richards PA-C [address] [place] [address] Social History Tobacco Use Types Packs/Day Years [...] 01/23/2024 Does the household have a re lar source of income? (Household - for ages [...] encounter Miscellaneous Notes * Telephone Encounter - Monica Callahan OSA - 01/24/2024 1:53 PM EST Patient no showed nurse intake and has been unreachable to try to reschedule ultrasound as anatomy scan. * Telephone Encounter - Samantha Richards PA-C - 01/21/2024 3:30 PM EST Order signed. Scheduling please call (rather than myG) and confirm appointments with patient to ensure aware of date/times. * Telephone Encounter - Ernestine Brennan RN - 01/21/2024 10:18 AM EST Patient called due to no showing new HB appt today. Patient reports she overslept for the appt and needs to reschedule. The only care she has had at this time is a dating US at [facility] and they gave her vitamins. States she has no insurance currently, advised her to contact her [facility] assistance office as soon as possible to apply for medical assistance. Per patient, when she want to [facility] about 2 weeks ago, she was 26-27 weeks . Currently would be about 28-29 weeks . Discussed with Samantha Richards, she is willing to order patient anatomy US and schedule new preantal and anatomy in the same day if possible. Samantha please place order for patient and send back to get rescheduled. I advised patient on phone that if she is having and concerns she should call back or if urgent concerns go to nearest ER. [facility] for scheduling. Patient is not HB currently, will need new , phone intake and US scheduled. Please call patient and confirm all appts with her. documented in this encounter Plan of Treatment Upcoming Encounters Date Type Department Care Team (Late st Contact Info) Description 02/03/2024 1:30 PM EST Office Visit Gynecology/Obstetrics [facility] [address] [place] [address] Samantha Richards PA-C [address] [place] [address] Scheduled Orders Name Type Priority Associated Diagnoses Orde r Schedule US PREG SINGLE/1ST GEST, 14 WEEKS OR LATER Medical Imaging Routine , unspecified gestational age Expected: 01/21/2024, Expires: 02/19/2025 Health Maintenance Due Date Last Done Comments [...] as of this encounter Visit Diagnoses Diagnosis , unspecified gestational age- Primary documented in this encounter Care Teams Iron Launder Operator Relationship Specialty Start Date End Date Debbie Garibay MD PCP - General 01/21/1998 documented as of this encounter
--- OUTSIDE RECORDS SUMMARY | 2024-03-19 00:15 | External Medical Summary | Summary of Care ---
Author Name Unknown Organization [facility] Address [address] [place] [facility] [place] [address] Phone [phone] Care Team Providers Care Financial Compliance Examiner Name Role Phone Debbie Garibay MD Primary Care Provider Unavailable Reason for Visit * Reason Onset Date Comments Test Results 02/07/2024 Encounter Details Date Type Department Care Team (Late st Contact Info) Description 02/07/2024 Telephone Gynecology/Obstetrics [facility] [address] [place] [address] Samantha Richards PA-C [address] [place] [address] Test Results Allergies No known active allergiesdocumented as of this encounter (statuses as of 02/07/2024) Medications Gummies 0.18-25 MG Oral Tablet Chewable Take by mouth. Active Cephalexin 500 MG Oral Capsule (Keflex) Take 1 Capsule by mouth in the morning and 1 Capsule before bedtime. Do all this for 7 days. Until gone.. 14 Capsule 02/07/2024 Active documented as of this encounter (statuses as of 02/07/2024) Active Problems Problem Noted Date Diagnosed Date Encounter for supervision of normal first in third trimester 02/03/2024 Late care affecting in third trimester 02/03/2024 Overview (02/03/2024): NOB at 32w5d Anatomy results pending at time of NOB Maternal tobacco use in third trimester 02/03/20 Estimated Date of Delivery Comme nts Yes 03/25/2024 Based on Ultraso und documented as of this encounter (statuses as of 02/07/2024) Social History Tobacco Use Types Packs/Day Years [...] have money to get more. Never true [place] Depression Scale Answer Date Recorded [place] Depression Scale Total 3 02/03/2024 The thought [...] encounter Miscellaneous Notes * Telephone Encounter - Makayla Arce LPN - 02/07/2024 12:06 PM EST Call placed to patient. VM picked up and was an unidentified man. I did leave a generic message asking for patient to return a call to us. MyG also sent. * Telephone Encounter - Samantha Richards PA-C - 02/07/2024 10:31 AM EST Pt urine culture did return positive for UTI. I sent treatment with Keflex to pharmacy. Will plan to repeat urine testing next appointment. Still needs NOB blood work. Please remind her. FYI she is also not scheduled for return OB and should be (2 week return from last). Samantha Richards PA-C documented in this encounter Plan of Treatment Upcoming Encounters Date Type Department Care Team (Late st Contact Info) Description 02/11/2024 10:30 AM EST Laboratory Laboratory [address] [place] [id number] [place] [address] Health Maintenance Due Date Last Done Comments Pneumococcal Vaccine: Pediat rics (0 to 5 Years) and At-Risk Patients (6 to 64 Years) (1 of 2 - PCV) 1995 Depression Screening 2001 HIV Screening 2004 Hepatitis C Screening 2007 Hepatitis B Vaccine (1 of 3 - 19+ 3-dose series) 2008 Pap Smear 2010 Cervical Cancer Screening 2019 HPV/Co-Test 2019 COVID-19 Vaccine (2023-2 5 season) 2023 Influenza [...] filedocumented as of this encounter Care Teams Financial Compliance Examiner Relationship Specialty Start Date End Date Debbie Garibay MD PCP - General 01/21/1998 documented as of this encounter
--- OUTSIDE RECORDS SUMMARY | 2024-03-19 00:15 | External Medical Summary | Summary of Care ---
Author Name Unknown Organization [facility] Address [address] [facility] [place] [address] Phone [phone] Care Team Providers Care Electrophysiology Technologist Name Role Phone Debbie Garibay MD Primary Care Provider Unavailable Reason for Visit * Reason Onset Date Comments Appointment 01/24/2024 Encounter Details Date Type Department Care Team (Late st Contact Info) Description 01/24/2024 Telephone Gynecology/Obstetrics [facility] [address] [place] [address] Samantha Richards PA-C [address] [place] [address] Appointment Social History Tobacco Use Types Packs/Day [...] No 01/23/2024 Does the household have a [facility] source of income? (Household - for ages [...] Telephone Encounter - Cathryn Ruiz LPN - 01/24/2024 8:57 AM EST TC for intake, no answer. left message for patient to call office documented in this encounter Plan of Treatment Upcoming Encounters Date Type Department Care Team (Late st Contact Info) Description 02/03/2024 1:30 PM EST Office Visit Gynecology/Obstetrics [facility] [address] [place] [address] Samantha Richards PA-C [address] [place] [address] Health Maintenance Due Date Last Done Comments [...] filedocumented as of this encounter Care Teams Electrophysiology Technologist Relationship Specialty Start Date End Date Debbie Garibay MD PCP - General 01/21/1998 documented as of this encounter
--- OUTSIDE RECORDS SUMMARY | 2024-03-19 00:15 | External Medical Summary ---
Author Name Unknown Address Unknown Organization [id number]:[facility]ORY [facility] [place] [facility] - [address] [place] [address] Laboratory Report Ordering Provider Test Date Status EDDA FABIAN 02/11/2024 10:38:18 Final Observation Date Value Abnormality Reference (Units ) Status ABO 02/11/2024 10:38:18 O Final RH 02/11/2024 10:38:18 Positive Final RED BLOOD CELL ANTIBODY SCREEN 02/11/2024 10:38:18 Negative Final SPECIMEN EXPIRATION DATE 02/11/2024 10:38:18 02/14/2024 23:59 Final Performing Location [facility] – [place] [facility] - [address] [place] [address]
--- OUTSIDE RECORDS SUMMARY | 2024-03-19 00:15 | External Medical Summary ---
Author Name Unknown Address Unknown Organization [id number]:LABORATORY [facility] [address] [place] [address] Laboratory Report Ordering Provider Test Date Status EDDA FABIAN 02/03/2024 14:10:00 Final Observation Date Value Abnormality Reference (Units ) Status Color of Urine by Auto 02/03/2024 14:10:00 Yellow Light Yellow, Yellow Final Clarity, Urine 02/03/2024 14:10:00 Clear Clear Final Glucose [Mass/volume] in Urine by Automated test strip 02/03/2024 14:10:00 Negative Negative (mg/dL) Final Bilirubin.total [Presence] in Urine by Automated test strip 02/03/2024 14:10:00 Negative Negative Final Ketones [Mass/volume] in Urine by Automated test strip 02/03/2024 14:10:00 Negative Negative (mg/dL) Final Specific gravity, Urine 02/03/2024 14:10:00 1.020 1.003-1.030 Final Hemoglobin [Presence] in Urine by Automated test strip 02/03/2024 14:10:00 Negative Negative Final pH, Urine 02/03/2024 14:10:00 7.5 5.0, 5.5, 6.0, 6.5, 7.0, 7.5 (units) Final Protein [Mass/volume] in Urine by Automated test strip 02/03/2024 14:10:00 Negative Negative (mg/dL) Final Urobilinogen, Urine 02/03/2024 14:10:00 0.2 0.2, 1.0 (mg/dL) Final Nitrite [Presence] in Urine by Automated test strip 02/03/2024 14:10:00 Negative Negative Final Leukocyte esterase [Presence] in Urine by Automated test strip 02/03/2024 14:10:00 Trace Abnormal Negative Final Performing Location LABORATORY [facility] [place] 57[address] - [address] [place] [address]
--- OUTSIDE RECORDS SUMMARY | 2024-03-19 00:15 | External Medical Summary ---
Author Name Unknown Address Unknown Organization [id number]:LABORATORY [facility] - [address] [place] [address] Laboratory Report Ordering Provider Test Date Status EDDA FABIAN 02/03/2024 13:08:44 Final Observation Date Value Abnormality Reference (Units ) Status Chlamydia trachomatis rRNA [Presence] in Specimen by JESSENIA with probe detection 02/03/2024 13:08:44 Negative Negative Final No Chlamydia trachomatis det ected by head shipper-mediated nucleic acid amplification. Neisseria gonorrhoeae rRNA [ Presence] in Specimen by JESSENIA with probe detection 02/03/2024 13:08:44 Negative Negative Final No Neisseria gonorrhoeae det ected by head shipper-mediated nucleic acid amplification. Performing Location LABORATORY [facility] - [address] [place] [address]
--- OUTSIDE RECORDS SUMMARY | 2024-03-19 00:15 | External Medical Summary ---
Author Name Unknown Address Unknown Organization K01:LABORATORY [facility] - [address] [place] [address] Laboratory Report Ordering Provider Test Date Status EDDA FABIAN 02/03/2024 13:08:44 Final Observation Date Value Abnormality Reference (Units ) Status Bacteria identified in Specimen by Culture 02/03/2024 13:08:44 [id number]^KLEBSIELL A PNEUMONIAE Abnormal Final 10,000 to 100,000 colonies/m L Klebsiella pneumoniae Performing Location LABORATORY [facility] - [address] [place] [address] Ordering Provider Test Date Status EDDA FABIAN 02/03/2024 13:08:44 Final Observation Date Value Abnormality Reference (Units ) Status Ampicillin + Sulbactam 02/03/2024 13:08:44 4 Susceptible Final Cefazolin 02/03/2024 13:08:44 <=4 Susceptible Final Cefepime susceptibility 02/03/2024 13:08:44 <=1 Susceptible Final Ceftriaxone suceptibility 02/03/2024 13:08:44 <=1 Susceptible Final Ciprofloxacin 02/03/2024 13:08:44 <=0.25 Susceptible Final Due to serious side effects, the FDA has advised against using Ciprofloxacin to treat uncomplicated UTIs and respiratory tract infections unless there are no alternative treatment options. Gentamicin susceptibility 02/03/2024 13:08:44 <=1 Susc eptible Final Nitrofurantoin susceptibility 02/03/2024 13:08:44 64 Intermediate Final Piperacillin + Tazobactamsusceptibility 02/03/2024 13:08:44 <=4 Susceptible Final TMP-SMZ susceptibility 02/03/2024 13:08:44 <=20 Suscept ible Final Test: Culture, Urine, Quanti tative
Specimen Source: Urine, Clean Catch
Specimen Type: Urine
Specimen Date: 02/03/2024 1308
Result Date: 02/06/2024 0720
Result Status: Final result
Abnormal: Yes
Resulting Lab: LABORATORY [facility]
[address]
[facility] [address]

CULTURE

10,000 to 100,000 colonies/mL Klebsiella pneumoniae (Abnormal)

SUSCEPTIBILITY

Klebsiella
pneumoniae
METHOD MICROBROTH DILUTIONS

AMPICILLIN/SULBACTAM 4 Susceptible
CEFAZOLIN <=4 Susceptible
CEFEPIME <=1 Susceptible
CEFTRIAXONE <=1 Susceptible
CIPROFLOXACIN <=0.25 Susceptible
[1]
GENTAMICIN <=1 Susceptible
NITROFURANTOIN 64 Intermediate
PIPERACILLIN TAZOBACTAM <=4 Susceptible
TRIMETH/SULFAMETHOXAZOLE <=20 Susceptible

[1] Due to serious side effects, the FDA has advised against using
Ciprofloxacin to treat uncomplicated UTIs and respiratory tract infections
unless there are no alternative treatment options.

null Performing Location LABORATORY [facility] - [address] [facility] [address]
--- OUTSIDE RECORDS SUMMARY | 2024-03-19 00:15 | External Medical Summary | Summary of Care ---
Author Name Unknown Organization [facility] Address [address] [place] [address] Phone [phone] Care Team Providers Care Flare Worker Name Role Phone Debbie Garibay MD Primary Care Provider Unavailable Reason for Visit * Reason Onset Date Comments Test Results 02/07/2024 Encounter Details Date Type Department Care Team (Late st Contact Info) Description 02/07/2024 Telephone Gynecology/Obstetrics [facility] [address] [place] [address] Samantha Richards PA-C [address] [place] [address] Test Results Allergies No known active allergiesdocumented as of this encounter (statuses as of 02/08/2024) Medications Gummies 0.18-25 MG Oral Tablet Chewable Take by mouth. Active Cephalexin 500 MG Oral Capsule (Keflex) Take 1 Capsule by mouth in the morning and 1 Capsule before bedtime. Do all this for 7 days. Until gone.. 14 Capsule 02/07/2024 Active documented as of this encounter (statuses as of 02/08/2024) Active Problems Problem Noted Date Diagnosed Date Encounter for supervision of normal first in third trimester 02/03/2024 Late care affecting in third trimester 02/03/2024 Overview (02/03/2024): NOB at 32w5d Anatomy results pending at time of NOB Maternal tobacco use in third trimester 02/03/20 Estimated Date of Delivery Comme nts Yes 03/25/2024 Based on Ultraso und documented as of this encounter (statuses as of 02/08/2024) Social History Tobacco Use Types Packs/Day Years [...] have money to get more. Never true [place] Depression Scale Answer Date Recorded [place] Depression Scale Total 3 02/03/2024 The thought [...] Telephone Encounter - Makayla Arce LPN - 02/08/2024 10:58 AM EST Patient notified. Doing labs . Scheduled return appt * Telephone Encounter - Makayla Arce LPN - 02/07/2024 12:06 PM EST Call placed to patient. VM picked up and was an unidentified man. I did leave a generic message asking for patient to return a call to us. MyG also sent. * Telephone Encounter - Saamntha Rcihards PA-C - 02/07/2024 10:31 AM EST Pt [...] Description 02/11/2024 10:30 AM EST Laboratory Laboratory [address] [place] [id number] [address] [place] [address] 02/17/2024 7:30 AM EST Office Visit Gynecology/Obstetrics [facility] [address] [place] [address] [place], HILARIO Farley [address] [place] [address] Health Maintenance Due Date Last Done Comments [...] filedocumented as of this encounter Care Teams Flare Worker Relationship Specialty Start Date End Date Debbie Garibay MD PCP - General 01/21/1998 documented as of this encounter
--- OUTSIDE RECORDS SUMMARY | 2024-03-19 00:15 | External Medical Summary ---
Author Name Unknown Address Unknown Organization K01:LABORATORY [address] [facility] [address] Laboratory Report Ordering Provider Test Date Status EDDA FABIAN 02/03/2024 13:08:00 Final Observation Date Value Abnormality Reference (Units ) Status Human papilloma virus E6+E7 mRNA [Presence] in Cervix by JESSENIA with probe detection 02/03/2024 13:08:00 Negative Not Applicable Final No high/intermediate-risk Hu man Papillomavirus (HPV E6/E7 messenger RNA) detected by nucleic acid amplification.

This assay looks for high/intermediate risk Human Papillomavirus (HPV E6/E7 messenger RNA) by nucleic acid amplification. This assay includes the qualitative detection of HPV types 16,18,31,33,35,39,45,51,52,56,58,59,66 and 68 from cervical specimens.
This assay has been FDA cleared for Thin prep collection vials.
This assay has not been approved for use as a primary screening test for HPV and should be tested in conjunction with a PAP screen.
If collected utilizing a Surepath vial, the collection and specimen preparation of this test was developed, and its performance characteristics determined by [facility] It has not been cleared or approved by the U.S. Food and Drug Administration (FDA). The FDA has determined that such clearance or approval is not necessary.
This assay has been performed at [facility] [address] [place] [address], [place] [address]. Performing Location LABORATORY [address] [facility] [address]
--- OUTSIDE RECORDS SUMMARY | 2024-03-19 00:15 | External Medical Summary | Summary of Care ---
Author Name Unknown Organization [facility] Address [address] [facility] [place] [address] Phone [phone] Care Team Providers Care Carpenter And Joiner Name Role Phone Debbie Garibay MD Primary Care Provider Unavailable Reason for Visit * Reason Comments New Visit Encounter Details Date Type Department Care Team (Late st Contact Info) Description 02/03/2024 12:45 PM EST Nurse Only Gynecology/Obstetrics [facility] [address] [place] [address] Gw, Nurse Studio Engineer New [address] [facility] [place] [address] New Visit Allergies No known active allergiesdocumented as of this encounter (statuses as of 02/03/2024) Medications Gummies 0.18-25 MG Oral Tablet Chewable Take by mouth. Active documented as of this encounter (statuses as of 02/03/2024) Active Problems Problem Noted Date Diagnosed Date Encounter for supervision of normal first in third trimester 02/03/2024 Late care affecting in third trimester 02/03/2024 Overview (02/03/2024): NOB at 32w5d Anatomy results pending at time of NOB Estimated Date of Delivery Comme nts Yes 03/25/2024 Based on Ultraso und documented as of this encounter (statuses as of 02/03/2024) Social History Tobacco Use Types Packs/Day Years Used Date Smoking Tobacco: Every Day Cigarettes Smokeless Tobacco: Never Tobacco Cessation:Ready to Q uit: Not Asked; Counseling Given: Not Answered Alcohol Use Standard Drinks/Week Comments Not Currently [...] have money to get more. Never true [place] Depression Scale Answer Date Recorded [place] Depression Scale Total 3 02/03/2024 The thought [...] Sign Reading Time Taken Comments Blood Pressure - - Pulse - - Temperature - - Respiratory Rate - - Oxygen Saturation - - Inhaled Oxygen Concentration - - Weight - - Height 172.7 cm (5' 8") 02/03/2024 12:20 PM EST Body Mass Index - - documented in this encounter Nursing Notes * Cathryn Ruiz LPN - 02/03/2024 12:36 PM EST NOB 32w5d by US, LMP unknown. Planning [facility] delivery. Reviewed gtt, labor instructions. Patient denies concerns today. documented in this encounter Plan of Treatment Upcoming Encounters Date Type Department Care Team (Late st Contact Info) Description 02/03/2024 1:30 PM EST Office Visit Gynecology/Obstetric s [facility] [address] [place] [address] Samantha Richards PA-C [address] [place] [address] Encounter for supervision of normal first in third trimester*; Pap smear for cervical cancer screening; Late care affecting in third trimester Health Maintenance Due Date Last Done Comments [...] filedocumented as of this encounter Care Teams Carpenter And Joiner Relationship Specialty Start Date End Date Debbie Garibay MD PCP - General 01/21/1998 documented as of this encounter
--- OUTSIDE RECORDS SUMMARY | 2024-03-19 00:15 | External Medical Summary ---
Author Name Unknown Address Unknown Organization K01:LABORATORY [facility] - [address] [place] [address] Laboratory Report Ordering Provider Test Date Status EDDA FABIAN 02/11/2024 10:38:18 Final Observation Date Value Abnormality Reference (Units ) Status WBC, Total 02/11/2024 10:38:18 7.70 4.00-10.8 0 (K/uL) Final RBC 02/11/2024 10:38:18 4.35 3.85-5.15 (M/uL) Final Hemoglobin 02/11/2024 10:38:18 13.6 12.0-15.3 (g/dL) Final Anemia reflex testing trigge rs on a HGB < 12.0 for Females and HGB < 13.0 for Males in accordance with the WHO Anemia Guidelines
Anemia reflex testing triggers on a HGB < 12.0 for Females and HGB < 13.0 for Males in accordance with the WHO Anemia Guidelines HCT 02/11/2024 10:38:18 42.4 36.0-45.2 (%) Final MCV 02/11/2024 10:38:18 97.5 81.5-97.5 (fL) Final MCH 02/11/2024 10:38:18 31.3 27.0-34.0 (pg) Final MCHC 02/11/2024 10:38:18 32.1 32.0-36.0 (g/dL) Final RDW 02/11/2024 10:38:18 13.3 11.5-15.5 (%) Final Platelets 02/11/2024 10:38:18 235 140-400 (K /uL) Final MPV 02/11/2024 10:38:18 10.8 6.6-11.1 ( fL) Final Nucleated erythrocytes/100 leukocytes [Ratio] in Blood by Automated count 02/11/2024 10:38:18 0 <=0 (/100 WBCs) Fi nal Performing Location LABORATORY [facility] - [address] [place] [address]
--- OUTSIDE RECORDS SUMMARY | 2024-03-19 00:15 | External Medical Summary | Summary of Care ---
Author Name Unknown Organization [facility] Address [address] [address] Phone [phone] Care Team Providers Care Flight Operations Inspector Name Role Phone Debbie Garibay MD Primary Care Provider Unavailable Reason for Visit * Reason Onset Date Comments Order Request 12/31/2023 Dating us Encounter Details Date Type Department Care Team ([facility] st Contact Info) Description 12/31/2023 Telephone Gynecology/Obstetrics [facility] [address] [place] [address] Samantha Richards PA-C [address] [place] [address] Order Request (Dating us ) Social History Tobacco Use Types Packs/Day Years Used Date Smoking Tobacco: Never Assessed Utilities Answer Date Recorded Do you have trouble paying y our heating, water, or electric bill? (Adult - for ages 18 years and over) Not on file 08/17/2023 Is your family able to pay t he heat, water, or electric bill? (Household - for ages 0-17 years) Not on file 08/17/2023 Does your family have access to good internet? (Household - for ages 0-17 years) Not on file 08/17/2023 Social Connections Answer Date Recorded How often do you feel lonely or isolated from those around you? (Adult - for ages 18 years and over) Not on file 08/17/2023 Sex and Gender Information Value Date Recorded Sex Assigned at Not on file Gender Identity Not on file Sexual Orientation Not on file documented as of this encounter Miscellaneous Notes * Telephone Encounter - Samantha Richards PA-C - 12/31/2023 2:58 PM EDT Order placed, routing back. Thank you! * Telephone Encounter - Monica Callahan OSA - 12/31/2023 2:40 PM EDT Dating US scheduled prior to NOB; Please place order and send back to me documented in this encounter Plan of Treatment Upcoming Encounters Date Type Department Care Team (Late st Contact Info) Description 01/21/2024 9:00 AM EST Imaging Radiology [facility] [address] [place] [address] 01/21/2024 9:45 AM EST Office Visit Gynecology/Obstetrics [facility] [address] [place] [address] Samantha Richards PA-C [address] [place] [address] Gw, Nurse R And D Lab Technician [facility] [address] [place] [address] Scheduled Orders Name Type Priority Associated Diagnoses Orde r Schedule US PELVIS TRANS-VAGINAL OB Medical Imaging Routine Early stage of Expected: 01/21/2024, Expires: 01/29/2025 Health Maintenance Due Date Last Done Comments [...] as of this encounter Visit Diagnoses Diagnosis Early stage of - Primary documented in this encounter Care Teams Flight Operations Inspector Relationship Specialty Start Date End Date Debbie Garibay MD PCP - General 01/21/1998 documented as of this encounter
--- OUTSIDE RECORDS SUMMARY | 2024-03-19 00:15 | External Medical Summary ---
Author Name Unknown Address Unknown Organization K01:LABORATORY [facility] - [address] [place] [address] Laboratory Report Ordering Provider Test Date Status EDDA FABIAN 02/11/2024 10:38:18 Final Observation Date Value Abnormality Reference (Units ) Status Hep B surface Ag 02/11/2024 10:38:18 Negative Neg ative Final Performing Location LABORATORY [facility] - [address] [place] [address] [place] [address]
--- OUTSIDE RECORDS SUMMARY | 2024-03-19 00:15 | External Medical Summary | Summary of Care ---
Author Name Unknown Organization [facility] Address [address] [facility] [place] [address] Phone [phone] Care Team Providers Care Junior Mechanical Engineer Name Role Phone Debbie Garibay MD Primary Care Provider Unavailable Encounter Details Date Type Department Care Team (Late st Contact Info) Description 02/05/2024 Orders Only PATIENT PORTAL DO NOT DELETE THIS DEPT USED BY [place] [address] Allergies No known active allergiesdocumented as of this encounter (statuses as of 02/05/2024) Medications Gummies 0.18-25 MG Oral Tablet Chewable Take by mouth. Active documented as of this encounter (statuses as of 02/05/2024) Active Problems Problem Noted Date Diagnosed Date [...] as of this encounter (statuses as of 02/05/2024) Social History Tobacco Use Types Packs/Day Years [...] have money to get more. Never true [place] Depression Scale Answer Date Recorded [place] Depression Scale Total 3 02/03/2024 The thought [...] filedocumented as of this encounter Care Teams Junior Mechanical Engineer Relationship Specialty Start Date End Date Debbie Garibay MD PCP - General 01/21/1998 documented as of this encounter
--- OUTSIDE RECORDS SUMMARY | 2024-03-19 00:15 | External Medical Summary ---
Author Name Unknown Address Unknown Organization K01:LABORATORY [facility] - [address] [place] [address] Laboratory Report Ordering Provider Test Date Status EDDA FABIAN 02/11/2024 10:38:18 Final Observation Date Value Abnormality Reference (Units ) Status Treponema pallidum Ab [Presence] in Serum by Immunoassay 02/11/2024 10:38:18 Nonreactive Nonreactive Final No serologic evidence of syp hilis. No additional testing clinicially indicated at this time. Consider repeat testing in 2-4 weeks if acute or primary syphilis is suspected. Performing Location LABORATORY [facility] - [address] [place] [address]
--- OUTSIDE RECORDS SUMMARY | 2024-03-19 00:15 | External Medical Summary ---
Author Name Unknown Address Unknown Organization K01:LABORATORY [facility] [place] [facility] - [address] [place] [address] Laboratory Report Ordering Provider Test Date Status EDDA FABIAN 02/11/2024 10:38:18 Final Observation Date Value Abnormality Reference (Units ) Status Rubella virus IgG Ab [Presence] in Serum 02/11/2024 10:38:18 Positive Abnormal Negative Final A positive result is consist ent with having had rubella virus or vaccination. Performing Location LABORATORY [facility] [place] - [address] [place] [address]
--- OUTSIDE RECORDS SUMMARY | 2024-03-19 00:15 | External Medical Summary ---
Author Name Unknown Address Unknown Organization K01:LABORATORY [facility] [place] [address] Laboratory Report Ordering Provider Test Date Status EDDA FABIAN 02/11/2024 10:38:18 Final Observation Date Value Abnormality Reference (Units ) Status SYNC LEUKOCYTES IN BLOOD BY AUTOMATED COUNT 02/11/2024 10:38:18 7.70 4.00-10.80 (K/uL) Final Segs 02/11/2024 10:38:18 66.4 40.0-75.0 (%) Final Lymphs % 02/11/2024 10:38:18 21.8 18.0-42.0 (%) Final Monos 02/11/2024 10:38:18 9.9 1.0-11.0 (%) Final Eosinophils 02/11/2024 10:38:18 0.9 0.0-6.0 (%) Final Basos 02/11/2024 10:38:18 0.5 0.0-2.0 (%) Final Immature Granulocyte, Percent 02/11/2024 10:38:18 0.5 0.0-2.0 (%) Final Absolute Segs 02/11/2024 10:38:18 5.11 1.80-7.70 (K/uL) Final Lymphs, absolute 02/11/2024 10:38:18 1.68 1.00-4.80 (K/ul) Final Monos, Abs 02/11/2024 10:38:18 0.76 0.00-1.10 (K/uL) Final Eos, Abs 02/11/2024 10:38:18 0.07 0.00-0.70 (K/uL) Final Basos, Abs 02/11/2024 10:38:18 0.04 0.00-0.20 (K/uL) Final Immature Granulocytes, Number 02/11/2024 10:38:18 0.04 0.00-0.20 (K/uL) Final Performing Location LABORATORY [facility] - [address] [facility] [address]
[2024-03-19] MEDS: ACETAMINOPHEN 325 MG TAB ONE (01:44)
[2024-03-19] MEDS: ACETAMINOPHEN 325 MG TAB PO ONE (02:11)
[2024-03-19] MEDS: BUTORPHANOL TARTRATE 2 MG/ML VIAL IV ONE (02:28)
[2024-03-19] MEDS: SODIUM CHLORIDE 0.9% 1,000 ML IV SCH ×2 (02:28→03:35)
[2024-03-19] MEDS ORDERED: BUTORPHANOL TARTRATE 2 MG/ML VIAL IV ONE (03:20)
[2024-03-19] MEDS: BUTORPHANOL TARTRATE 1 MG/ML VIAL IV ONE (03:59)
[2024-03-19 04:12] LABS: Amphetamines+Metham, Urine Neg (Neg); Barbiturates, Urine Neg (Neg); Benzodiazepine, Urine Neg (Neg); Cocaine, Urine Neg (Neg); Fentanyl, Urine Neg (Neg); MDMA (Ecstacy), Urine Neg (Neg); Marijuana, Urine Neg (Neg); Methadone, Urine Neg (Neg); Opiate, Urine Neg (Neg); Phencyclidine, Urine Neg (Neg)
[2024-03-19] MEDS: MoRPHine SULFATE 10 MG/ML CARP/VIAL IM STA (04:27)
[2024-03-19 04:30] LABS: Total Protein Urine Random 5.3 mg/dl (0-11.9)
[2024-03-19 04:36] LABS: Creatinine Urine Random 35.5 mg/dl; Protein Creatinine Ratio Urine 0.1 (0-0.2)
[2024-03-19] MEDS ORDERED: OXYTOCIN 30 UNITS/NSS 30 UNITS/500 ML BAG IV PRN ×2 (07:12→16:07)
[2024-03-19] MEDS ORDERED: LIDOCAINE 1% LOCAL 20 ML VIAL INFIL PRN (07:12)
[2024-03-19 07:54] LABS: Hematocrit (blood only) 40.9 % (37.0-47.0); Mean Corpuscular Hgb Conc 34.2 g/dL (32.0-36.0); Mean Corpuscular Volume 90.5 fL (80.0-100.0); Mean Platelet Volume 10.5 fL (9.4-12.4); Platelet Count 245 K/uL (130-400); Red Blood Count 4.52 M/uL (4.20-5.40); White Blood Count 15.48 K/ul (4.8-10.8)
--- NOTE | 2024-03-19 08:00 | Anesthesiology Consultation ---
Date of Service March 19, 2024 Assessment & Plan (1) Encounter for pre-operative examination: Chart Review Chart Review: Acceptable Risk for Labor Epidural History Height/Weight Height: 5 ft 8 in Weight: 70.307 kg Allergies Allergy/AdvReac Type Severity Reaction Status Date / Time No Known Allergies Allergy Verified 03/19/24 00:22 Medications Home Medications Medication Instructions Recorded Confirmed Last Taken vits no.124-ferrous fum 1 tab PO DAILY 03/19/24 03/19/24 03/19/24 27 mg iron-folic acid 800 mcg tablet ( Vitamin) Active Medications Generic Name Dose Route Start Last Admin Trade Name Freq PRN Reason Stop Dose Admin Sodium Chloride 1,000 mls @ 125 mls/hr 03/19/24 03:45 03/19/24 03:35 Nss IV 03/20/24 03:44 125 mls/hr .Q8H LISANDRO Administration Past Medical History Medical History (Updated 03/19/24 @ 07:59 by Bishnu Rodríguez MD) Hypertension Past Surgical History Surgical History (Updated 03/19/24 @ 07:59 by Bishnu Rodríguez MD) No pertinent past surgical history Social History Smoking Status: Current every day smoker Smoking cigarettes per day: 3 Hx Alcohol Use: No Hx Substance Use: No substance use type: does not use Physical Exam Vital Signs Last Vital Signs Temp 36.5 C 03/19/24 07:13 Pulse 88 03/19/24 06:56 Resp 20 03/19/24 07:13 BP 133/74 03/19/24 06:56 Testing Laboratory Results 03/19/24 07:31
[2024-03-19] MEDS: fentANYL 2 MCG/ML BUPIVacaine 0.125%-NSS 100ML BAG ONE (08:26)
[2024-03-19] MEDS ORDERED: SODIUM CHLORIDE 0.9% PF INJ 10 ML VIAL EPI PRN (08:32)
[2024-03-19] MEDS ORDERED: NALOXONE HCL 0.4 MG/1 ML VIAL/CARP IV PRN (08:32)
[2024-03-19] MEDS ORDERED: LIDOCAINE 2% MPF LOCAL 5 ML VIAL EPI PRN (08:32)
[2024-03-19] MEDS ORDERED: fentANYL 2 MCG/ML BUPIVacaine 0.125%-NSS 100ML BAG EPI PRN (08:32)
[2024-03-19] MEDS ORDERED: NALOXONE HCL 1 MG in SODIUM CHLORIDE 0.9% 1,000 ML IV PRN (08:32)
[2024-03-19] MEDS ORDERED: ROPIVACAINE 0.5% PF 5 MG/ML 20 ML VIAL EPI PRN (08:32)
[2024-03-19] MEDS ORDERED: ePHEDrine sulfate 50 MG/ML AMP IV PRN (08:32)
[2024-03-19] MEDS ORDERED: fentaNYL citrate PF 100 MCG/2 ML VIAL EPI PRN (08:32)
[2024-03-19] MEDS ORDERED: BUPIVACAINE 0.25% PF 30 ML VIAL EPI PRN (08:32)
[2024-03-19] MEDS: fentaNYL citrate PF 100 MCG/2 ML VIAL ONE (08:33)
[2024-03-19] MEDS: BUPIVACAINE 0.25% PF 30 ML VIAL ONE (08:35)
[2024-03-19] MEDS: LIDOCAINE 2%/EPINEPHRINE 1:200,000 20 ML PF ONE (08:36)
[2024-03-19] MEDS: SODIUM CHLORIDE 0.9% PF INJ 10 ML VIAL EPI STA (09:35)
[2024-03-19] MEDS: fentaNYL citrate PF 100 MCG/2 ML VIAL EPI STA (09:35)
[2024-03-19] MEDS: LIDOCAINE 2%/EPINEPHRINE 1:200,000 20 ML PF EPI STA (09:35)
[2024-03-19] MEDS: SODIUM CHLORIDE 0.9% PF INJ 10 ML VIAL ONE (09:35)
[2024-03-19] MEDS: BUPIVACAINE 0.25% PF 30 ML VIAL EPI STA (09:35)
--- NOTE | 2024-03-19 10:04 | History & Physical Report ---
Date of Service March 19, 2024 Assessment & Plan Admission and Anticipated Discharge Date Admission Date: March 19, 2024 History of Present Illness Chief Complaint: onset of labor at term Primary Care Provider: NO PCP 33 F P0000 at 39.1 with onsset of labor. GBS is negative. Allergies Allergy/AdvReac Type Severity Reaction Status Date / Time No Known Allergies Allergy Verified 03/19/24 00:22 Home Medications Medication Instructions Recorded Confirmed Type vits no.124-ferrous fum 1 tab PO DAILY 03/19/24 03/19/24 History 27 mg iron-folic acid 800 mcg tablet ( Vitamin) Patient History Medical History Hypertension Surgical History No pertinent past surgical history Social History Smoking Status: Current every day smoker Tobacco Type: Cigarettes Cigarettes Per Day: 3; Hx Alcohol Use: No Hx Substance Use: No Preferred Language: Wallisian Communication Ability: Effective Procurement Professional Required: No Beliefs That Will Affect Care: None marital status: Single Current Living Situation: Parent Feels Safe at Home: Yes Safety Concerns: Feels Safe At This Time Assistive Devices: None OB History prime MANAGER TEST History neg Review of Systems All systems reviewed & are unremarkable except as noted in HPI & below Physical Exam Constitutional: WD/WN, vitals as above Eyes: PERRL, conjunctivae normal, anicteric sclerae Respiratory: normal respiratory effort, lungs clear to auscultation Cardiovascular: Rate/Rhythm: regular rate and regular rhythm Gastrointestinal (Abdomen): Inspection/Auscultation: abdomen normal to inspection Musculoskeletal: Extremities: extremities normal to inspection Skin: no rashes, warm and dry Neurologic: patellar DTR's 2+ bilat, sensation intact Psychiatric: A+Ox3, euthymic affect Genitourinary: no vaginal lesions, no adnexal mass OB Exam Abdomen: + fundal height and + vertex Manual OB Exam: + cervical dilation 6 cm, + cervical effacement 100%, + station -1 and + amniotic fluid meconium OB Exam Monitor Tracing: + external FHT monitor used, + external uterine monitor used, + category I and + normal FHT variability AROM with Amni-hook meconium fluid Results & Data Vital Signs (Past 12 Hours) Vital Signs Temp Pulse Resp BP Pulse Ox 03/19/24 09:59 89 88 L 03/19/24 09:57 76 100 03/19/24 09:52 95 H 98 03/19/24 09:49 103 H 127/67 03/19/24 09:47 96 H 98 03/19/24 09:42 89 98 03/19/24 09:37 86 98 03/19/24 09:33 16 03/19/24 09:33 97 H 16 118/58 L 03/19/24 09:32 94 H 97 03/19/24 09:27 85 97 03/19/24 09:22 84 97 03/19/24 09:18 97 H 125/58 L 03/19/24 09:17 88 97 03/19/24 09:12 83 97 03/19/24 09:07 90 97 03/19/24 09:03 97 H 16 133/61 03/19/24 09:02 90 97 03/19/24 08:57 82 98 03/19/24 08:52 91 H 95 03/19/24 08:48 101 H 94 03/19/24 08:47 99 H 120/58 L 95 03/19/24 08:46 96 H 116/63 03/19/24 08:45 90 106/57 L 03/19/24 08:43 90 94 03/19/24 08:42 89 102/57 L 95 03/19/24 08:37 88 97 03/19/24 08:36 93 H 125/59 L 03/19/24 08:34 90 130/64 03/19/24 08:33 83 92 03/19/24 08:32 94 03/19/24 08:32 78 03/19/24 08:32 76 114/58 L 03/19/24 08:30 86 122/59 L 03/19/24 08:28 99 H 142/82 H 03/19/24 08:27 100 H 138/84 03/19/24 08:24 85 158/91 H 03/19/24 08:23 88 155/93 H 03/19/24 07:57 95 H 98 03/19/24 07:13 20 03/19/24 07:13 36.5 C 20 03/19/24 06:56 88 133/74 03/19/24 06:26 83 131/67 03/19/24 05:56 85 137/72 03/19/24 04:56 36.6 C 77 20 145/97 H 03/19/24 04:26 81 168/102 H 03/19/24 04:06 86 174/91 H 03/19/24 04:01 75 169/95 H 03/19/24 03:56 102 H 219/124 H 03/19/24 03:20 73 175/97 H 03/19/24 03:06 67 173/102 H 03/19/24 02:51 76 179/87 H 03/19/24 01:51 69 185/99 H 03/19/24 01:38 77 156/72 H 03/19/24 01:22 72 168/78 H 03/19/24 01:08 78 177/98 H 03/19/24 00:52 85 167/97 H 03/19/24 00:42 78 166/90 H 03/19/24 00:31 78 170/97 H 03/19/24 00:25 36.6 C 20 Laboratory Results 03/19/24 03/19/24 03:30 07:31 WBC 15.48 H RBC 4.52 Hgb 14.0 Hct 40.9 MCV 90.5 MCH 31.0 MCHC 34.2 RDW Std Deviation 43.0 RDW Coeff of Binh 13.0 Plt Count 245 MPV 10.5 Ur Random Creatinine 35.5 U Random Total Protein 5.3 Protein/Creatinin Ratio 0.1 Urine Opiates Screen Neg Ur Methadone, Qual Neg Urine Fentanyl Screen Neg Urine Barbiturates Neg Ur Phencyclidine (PCP) Neg U Amphetamin/Meth Scrn Neg MDMA (Ecstasy) Screen Neg U Benzodiazepines Scrn Neg Ur Cocaine Metabolite Neg U Marijuana (THC) Screen Neg Code Status & VTE Plan VTE Prophylaxis Plan VTE Prophylaxis will be ordered: No Monitoring External Monitor Cat 1
[2024-03-19] MEDS: ONDANSETRON INJ 2 MG/ML 2 ML VIAL IV PRN (10:08)
[2024-03-19] MEDS: OXYTOCIN 30 UNITS/NSS 30 UNITS/500 ML BAG IV PRN (10:57)
[2024-03-19] MEDS ORDERED: DIPHTHER/TETAN/PERTUS Vaccine (Tdap, Adol/Adult) 0.5mL IM ONE (16:07)
[2024-03-19] MEDS ORDERED: BENZOCAINE 20% SPRY 85 APPLN/85 GM CAN EXT PRN (16:07)
[2024-03-19] MEDS ORDERED: HYDROCORTISONE ACETATE 25 MG SUPP PR PRN (16:07)
--- NOTE | 2024-03-19 16:10 | Delivery Summary ---
Vaginal Delivery Summary Date of Service March 19, 2024 Vaginal Delivery Summary live male direct OP with Apgars 6/8 weight pending. Cord clamped and cut due to thick meconium and handed to nurse. Small introital abrasion not bleeding or repaired. QBL 50 ml. QBL 50 ml. Final sponge and instrument count are correct. Mom and baby stable.
[2024-03-19] MEDS: ePHEDrine sulfate 50 MG/ML AMP ONE (17:30)
--- NOTE | 2024-03-19 17:54 | Anesthesia Procedure Note ---
Date of Service March 19, 2024 Anesthesia Post Epidural Note Vital Signs Vital Signs: Temp Pulse Resp BP Pulse Ox 36.6 C 85 16 151/65 H 96 03/19/24 12:49 03/19/24 17:48 03/19/24 13:31 03/19/24 17:48 03/19/24 15:47 Notes Mental Status: alert / awake / arousable and participated in evaluation Nausea / Vomiting: adequately controlled Pain: adequately controlled Airway Patency, RR, SpO2: stable & adequate BP & HR: stable & adequate Hydration State: stable & adequate Neuraxial Anesthesia: was administered and sensory block is resolving Anesthetic Complications: no major complications apparent Epidural: Removed without complications and With tip intact
[2024-03-19] MEDS: DOCUSATE SODIUM 100 MG CAP PO SCH (20:46)
[2024-03-19] MEDS: IBUPROFEN 600 MG TAB PO PRN (20:46)
[2024-03-20 06:49] LABS: Hematocrit (blood only) 33.1 % (37.0-47.0); Hemoglobin 11.5 g/dl (12.0-16.0); Mean Corpuscular Hemoglobin 31.5 pg (25.0-34.0); Mean Corpuscular Hgb Conc 34.7 g/dL (32.0-36.0); Mean Corpuscular Volume 90.7 fL (80.0-100.0); Mean Platelet Volume 10.6 fL (9.4-12.4); Platelet Count 184 K/uL (130-400); RDW Coefficient of Variation 13.2 % (11.5-14.5); RDW Standard Deviation 43.1 fL (36.4-46.3); Red Blood Count 3.65 M/uL (4.20-5.40); White Blood Count 14.43 K/ul (4.8-10.8)
[2024-03-20] MEDS ORDERED: PRENATAL VITAMIN 1 TAB PO SCH (08:00)
[2024-03-20] MEDS: FERROUS SULFATE 325 MG TAB PO SCH (08:08)
[2024-03-20] MEDS: PRENATAL VITAMIN 1 TAB PO SCH (08:08)
--- NOTE | 2024-03-20 09:14 | Obstetrical Progress Note ---
Date of Service March 20, 2024 Subjective Ambulation: ambulating normally Voiding: no voiding problems Passing Gas:: Yes Diet Tolerance:: regular diet Lochia:: Small Feeding Type:: breast feeding Review of Systems All systems reviewed & are unremarkable except as noted in HPI & below Physical Exam Constitutional WD/WN, vitals as above well developed and well nourished Eyes PERRL, conjunctivae normal, anicteric sclerae Neck trachea midline, no thyromegaly Respiratory normal respiratory effort, lungs clear to auscultation Auscultation: no crackles, no rales and no wheezes Cardiovascular RRR, no murmur, no edema Gastrointestinal (Abdomen) normal bowel sounds, soft, nontender, no hepatosplenomegaly Uterus is below umbilicus Musculoskeletal no cyanosis or clubbing, extremities motor strength 5/5 Skin no rashes, warm and dry Neurologic patellar DTR's 2+ bilat, sensation intact Psychiatric A+Ox3, euthymic affect Genitourinary normal external appearance Results & Data Vital Signs (Past 12 Hours) Vital Signs Temp Pulse Resp BP Pulse Ox O2 Del Method 03/20/24 03:15 36.7 C 85 16 138/81 97 Room Air 03/20/24 00:10 36.8 C 87 18 152/83 H 97 Room Air Medications Administered Pt doing well No complaints Doing well Disch home tomorrow
[2024-03-20] MEDS: ACETAMINOPHEN 325 MG TAB PO PRN (12:11)
[2024-03-20] MEDS: bisacodyL 5 MG TABEC PO SCH (19:30)
--- NOTE | 2024-03-21 09:10 | Discharge Summary ---
Date of Service March 21, 2024 Admission HPI Per Admitting Provider 33 F P0000 at 39.1 with onsset of labor. GBS is negative. Admission Exam (Per Admitting) Constitutional WD/WN, vitals as above Cardiovascular RRR, no murmur, no edema Genitourinary deferred Discharge Data Consultations 03/19/24 07:13 Consult Anesthesiology Stat Procedures Performed S/P Discharge Instructions ACTIVITY RECOMMENDATIONS: * Gradual return to full activity over the next 2-3 weeks. * No lifting - nothing heavier than baby over the next 2-3 weeks. * Do not engage in vigorous exercise, sexual activity or sports until cleared by your physician. * Do not drive or operate any motorized equipment until cleared by your physician. * You may shower/bathe daily. BREAST CARE: If you are not breast feeding: * Wear a supportive bra 24 hours a day for one to two weeks. * Avoid stimulating your breasts and nipples as much as possible during the first few weeks after delivery. * When taking a shower, have the warm water hit your back, not breasts. * When your breasts feel full, apply ice packs. Usually three to four times a day helps ease the discomfort. * Take a mild pain medication (Tylenol/Motrin) when you are uncomfortable. If breast feeding: * Use breast milk to lubricate nipples. Lansinoh cream may be used for sore nipples. You do not need to remove cream prior to breast feeding. If using a different brand of cream, check the label for directions regarding removal of cream prior to nursing. * Wear a supportive bra. * If having problems with breasts or breast feeding, call a strategy execution consultant or your health care provider. EPISIOTOMY CARE: After delivery, if you have an episiotomy (stitches), the following steps will ease discomfort and aid healing. * For the first 24 hours after delivery, place ice packs next to your episiotomy to help reduce swelling. * After the first 24 hour-period, sitz baths, either portable or in the tub, are suggested. A shower with a shower arm sprayed over the episiotomy may be comforting. * Poonam care should be done after each voiding and bowel movement. Squirt warm water from a plastic bottle over the perineum (region of the body between the anus and urinary opening) and pat dry. * Use Dermoplast to ease discomfort. Shake container. [place] directly over the episiotomy. * Place a Tucks on a clean sanitary pad next to your episiotomy. OVER THE COUNTER MEDICATION: * For discomfort or pain, you may use Acetaminophen (Tylenol), Ibuprofen (Advil), or Naproxen (Aleve) following the package directions. * For constipation you may use Colace following the package directions. SPECIAL CARE INSTRUCTIONS: When you are discharged from the hospital, it is important for you to follow the instructions listed below: * During the first week at home, you should be able to care for yourself and your baby. In addition, the usual light household activities are encouraged. * Limit your activities to the way you feel. Do not try to clean the house or move furniture. Be sensible. * If you actively engage in sports and have done so up until the time of your delivery, you may resume these activities as soon as you feel able. This may take up to one month or even longer. Use good judgment. * Continue to take your vitamins for at least six weeks after the of your baby. * Your diet need not be limited unless you were on a special diet before your delivery. Breast-feeding mothers need around 2500 calories per day and at least 64-80 ounces of fluid per day (8 to 10 glasses). * You should eat foods from the four major food groups. Crash diets or fad diets are to be avoided. Eating lean meats, fresh fruits and vegetables, low-fat dairy products, high fiber foods and a regular exercise program, will help you get back to your pre- weight without putting your health at risk. * Constipation is sometimes a problem after delivery. Take a mild laxative as needed. If breast feeding, Milk of Magnesia is acceptable to use. You may use a suppository or Fleets enema if no episiotomy. * A daily shower or tub bath is suggested. Be sure to thoroughly and gently dry the perineum. * A bloody vaginal discharge will usually continue until around four weeks post . A small amount of bleeding may continue for as long as six weeks. Vaginal discharge changes from the bright red bleeding after delivery to pink then brownish and finally yellowish-pink before becoming white and disappearing. * Bleeding may increase with activity. Your first period may come in 4-8 weeks. If you are breast feeding, your period may be delayed even longer. * [place] (sex) can begin whenever both you and your partner feel comfortable and do not have any form of genital infection. It is recommended that you wait until after your return appointment and discuss with your physici an. If you have questions, please talk to your health care practitioner. A condom should be used to prevent infection and . * Foreplay, gentle intercourse and lubrication is very important the first several times to prevent pain. A water-based lubricant such as K-Y jelly or Astroglide may be used. * Tampons may be used six weeks after delivery. * Douching should be avoided for 6 weeks after delivery. * If you have RH negative blood and your baby is RH positive, you will receive RHOGAM by injection prior to discharge. The nurse will give you a card to keep with you that has the date and place that you received RHOGAM after delivery. * During your care, you had a Rubella screen done to check for the presence of rubella antibodies in your blood. If your test was negative, you will receive a Rubella vaccine prior to discharge. This vaccine may cause a fever, soreness at the injection site and flu-like symptoms. If these symptoms persist, notify your health care practitioner. is not advised for three months after a Rubella vaccine. There is a higher chance of having a baby with defects if conceived within three months of getting the vaccine. * If you were discharged 24 hours from delivery or before 48 hours: Visiting nurses will come to your home 48 hours after discharge to assess you and your baby. The visiting nurse will meet with you while you are in the hospital to arrange a time and get directions to your home. * Verbalizes understanding of car seat law as reviewed with patient nursing. * Car Seat hand-out given and reviewed with patient by nursing. * Shaken baby information reviewed with patient by nursing. Call you doctor if: * Heavy bleeding (saturating several pads an hour) or passing clots the size of your fist. * A fever >101 degrees F (38.3 degrees C) on two occasions four hours apart and/or chills. * Unusual pain in the pelvic or vaginal areas. * "Baby Blues" lasting longer than two weeks. If you have any questions or concerns, call your health care practitioner at . FOLLOW-UP VISIT: * Please call the office at to schedule 3 and 6 week examination. It is important you keep this appointment. * It is important for you to make arrangements for either yearly or twice yearly check-ups thereafter. Supervising Physician Co-Signing Physician Notes Dr. Tamara Hair MD
[2024-03-21 09:14] LABS: Hematocrit (blood only) 39.6 % (37.0-47.0); Hemoglobin 13.3 g/dl (12.0-16.0)
[2024-03-21 09:24] VITALS: BP 155/90; RESP 18; TEMP 98.4; O2SAT 99
[2024-03-21 09:56] VITALS: PULSE 85
[2024-03-21] MEDS ORDERED: bisacodyL 10 MG SUPP PR PRN (16:07)
== END 2024-03-21 12:55 | disposition home or self-care (01) | DRG 807 ==
LOC: OPB 00:06 → 4S1 00:09 → 4E2 18:49